=== PATIENT | female | born 1990 | race Caucasian/White ===

== ENCOUNTER 2018-12-08 20:45 | Emergency (ER) | payer OTHER ==
[2018-12-08] MEDS: METHOCARBAMOL 750 MG TAB PO (22:27)
== END 2018-12-08 22:53 | disposition home or self-care (01) ==
LOC: FTE 20:45
DX: H66.002 Acute suppurative otitis media without spontaneous rupture of ear drum, left ear (principal)
CPT/HCPCS: 81025; 99283